=== PATIENT | female | born 1975 | race African-American/Black ===

== ENCOUNTER 2021-02-02 19:42 | Inpatient (IN) | payer SELFPAY ==
[~2021-02-02] VITALS: Ht 160 cm; Wt 65.8 kg
[2021-02-02] MEDS ORDERED: SODIUM CHLORIDE 0.9% 1,000 ML IV ONE (20:30)
[2021-02-02] MEDS ORDERED: ONDANSETRON HCL 4MG/2ML INJ IV ONE (21:15)
[2021-02-02 21:17] LABS: BASOPHILS % 0.2 % (0.0-2.0); EOSINOPHILS % 0.2 % (0.0-5.0); HEMATOCRIT. 38.3 % (36.0-48.0); HEMOGLOBIN. 12.7 g/dL (12.0-16.0); LYMPHOCYTES % 9.9 % (20.0-50.0); MEAN CORPUSCULAR HEMOGLOBIN 28.4 pg (28.0-32.0); MEAN CORPUSCULAR VOLUME 85.4 fL (81.0-99.0); MEAN PLATELET VOLUME 7.9 fl (7.4-10.4); MONOCYTES % 4.5 % (2.0-8.0); NEUTROPHILS % 85.2 % (40.0-76.0); PLATELET 288 x1000/uL (130-400); RED BLOOD CELL COUNT 4.49 mill/uL (4.2-5.4); RED CELL DISTRIBUTION WIDTH 15.1 % (11.6-14.6)
[2021-02-02 21:22] LABS: CHLORIDE 110 mEq/L (98-107)
[2021-02-02 21:26] LABS: ETHANOL BLOOD < 10 mg/dL
[2021-02-02 21:27] LABS: PROTHROMBIN TIME 10.4 sec (9.6-11.0)
[2021-02-02 21:34] LABS: HCG SCREEN NEGATIVE
[2021-02-02] MEDS ORDERED: KCL 20MEQ/100ML PREMIX 100 ML IV ONE (22:00)
[2021-02-02] MEDS ORDERED: SODIUM CHLORIDE 0.9% 1000ML BAG (SEPSIS BOLUS) IV ONE (22:15)
[2021-02-02] MEDS ORDERED: CEFTRIAXONE 1 G PREMIX 50 ML IV ONE (22:15)
[2021-02-02 22:58] LABS: CLARITY URINE CLOUDY (CLEAR); COLOR URINE YELLOW (YELLOW); KETONES URINE NEGATIVE (NEGATIVE); LEUKOCYTE ESTERASE URINE NEGATIVE (NEGATIVE); NITRITE URINE NEGATIVE (NEGATIVE); OCCULT BLOOD URINE TRACE (NEGATIVE); PROTEIN URINE 1+ (NEGATIVE); SPECIFIC GRAVITY URINE 1.009 (1.005-1.030); UROBILINOGEN URINE 0.2 E.U./dL (0.2-1.0)
[2021-02-02] MEDS ORDERED: NICARDIPINE 100 MG in SODIUM CHLORIDE 0.9% 60 ML IV PRN (23:00)
[2021-02-02] MEDS ORDERED: NITROPRUSSIDE 100 MG in DEXT 5% WATER 250 ML IV PRN (23:00)
[2021-02-02 23:14] LABS: *AMPHETAMINES SCREEN URINE NEGATIVE (NEGATIVE); *BARBITURATES SCREEN URINE NEGATIVE (NEGATIVE)
[2021-02-02 23:15] LABS: *BENZODIAZEPINES SCREEN URINE NEGATIVE (NEGATIVE); CANNABINOID URINE SCREEN NEGATIVE (NEGATIVE); METHADONE URINE SCREEN NEGATIVE (NEGATIVE); OPIATES URINE SCREEN NEGATIVE (NEGATIVE); PHENCYCLIDINE URINE SCREEN NEGATIVE (NEGATIVE)
[2021-02-02] MEDS ORDERED: ACETAMINOPHEN 325MG TABLET PO PRN ×2 (23:15)
[2021-02-02] MEDS ORDERED: ONDANSETRON HCL 4MG/2ML INJ IV PRN (23:15)
[2021-02-02 23:16] LABS: *COCAINE SCREEN URINE PRESUMTIVE POSITIVE (NEGATIVE)
[2021-02-03] MEDS ORDERED: LEVETIRACETAM 500MG PREMIX 100 ML IV NR (00:30)
[2021-02-03] MEDS: SODIUM CHLORIDE 0.45% 1,000 ML IV SCH ×3 (00:35→20:35)
[2021-02-03 09:34] LABS: BASOPHILS % 0.4 % (0.0-2.0); EOSINOPHILS % 0.1 % (0.0-5.0); HEMATOCRIT. 36.6 % (36.0-48.0); HEMOGLOBIN. 11.5 g/dL (12.0-16.0); LYMPHOCYTES % 13.6 % (20.0-50.0); MEAN CORPUSCULAR HEMOGLOBIN 27.3 pg (28.0-32.0); MEAN CORPUSCULAR VOLUME 86.7 fL (81.0-99.0); MEAN PLATELET VOLUME 8.5 fl (7.4-10.4); MONOCYTES % 6.2 % (2.0-8.0); NEUTROPHILS % 79.7 % (40.0-76.0); PLATELET 227 x1000/uL (130-400); RED BLOOD CELL COUNT 4.23 mill/uL (4.2-5.4); RED CELL DISTRIBUTION WIDTH 15.1 % (11.6-14.6)
[2021-02-03 09:40] LABS: CHLORIDE 114 mEq/L (98-107)
[2021-02-03 09:48] LABS: PHOSPHORUS 2.6 mg/dL (2.5-4.9)
[2021-02-03 10:13] VITALS: BP 178/86
[2021-02-03 10:30] VITALS: BP 178/86
[2021-02-03 16:00] VITALS: BP 157/86
[2021-02-03] MEDS ORDERED: GADOTERATE MEGLUMINE 5 MMOL/10 ML VIAL IV ONE (16:26)
[2021-02-03] MEDS ORDERED: HYDRALAZINE 20MG/ML VIAL IV PRN (20:30)
[2021-02-03] MEDS: CEFTRIAXONE 1,000 MG in DEXTROSE 5% WATER 50 ML IV SCH (20:34)
[2021-02-03 20:36] VITALS: BP 150/87
[2021-02-03] MEDS ORDERED: CEFTRIAXONE 1 G PREMIX 50 ML IV SCH (22:00)
[2021-02-04] VITALS (7 sets, daily range): BP systolic 154–182; BP diastolic 84–103
[2021-02-04] MEDS: SODIUM CHLORIDE 0.45% 1,000 ML IV SCH ×2 (01:47→17:16)
[2021-02-04 06:10] LABS: BASOPHILS % 0.8 % (0.0-2.0); EOSINOPHILS % 1.8 % (0.0-5.0); HEMATOCRIT. 35.1 % (36.0-48.0); HEMOGLOBIN. 11.2 g/dL (12.0-16.0); LYMPHOCYTES % 34.1 % (20.0-50.0); MEAN CORPUSCULAR HEMOGLOBIN 27.7 pg (28.0-32.0); MEAN PLATELET VOLUME 9.6 fl (7.4-10.4); MONOCYTES % 5.2 % (2.0-8.0); NEUTROPHILS % 58.1 % (40.0-76.0); PLATELET 195 x1000/uL (130-400); RED BLOOD CELL COUNT 4.04 mill/uL (4.2-5.4); RED CELL DISTRIBUTION WIDTH 15.2 % (11.6-14.6)
[2021-02-04 06:44] LABS: CHLORIDE 110 mEq/L (98-107)
[2021-02-04 12:32] LABS: TOTAL IRON BINDING CAPACITY 275 ug/dL (250-450)
[2021-02-04] MEDS: AMLODIPINE 5MG TABLET PO SCH (17:18)
[2021-02-04 19:00] LABS: FOLIC ACID (FOLATE) SERUM 13.4 ng/mL (>5.38)
[2021-02-04] MEDS: CEFTRIAXONE 1,000 MG in DEXTROSE 5% WATER 50 ML IV SCH (21:49)
[2021-02-04] MEDS ORDERED: SULF-288 PO (21:57)
[2021-02-05 00:35] VITALS: BP 146/88
[2021-02-05] MEDS: SODIUM CHLORIDE 0.45% 1,000 ML IV SCH ×2 (03:38→11:30)
[2021-02-05 04:00] VITALS: BP 155/87
[2021-02-05 07:53] VITALS: BP 156/93
[2021-02-05] MEDS: AMLODIPINE 5MG TABLET PO SCH (08:46)
[2021-02-05] MEDS ORDERED: AMLODIPINE 5MG TABLET PO NR (10:15)
[2021-02-05] MEDS ORDERED: TOPUD PO (10:20)
[2021-02-05] MEDS ORDERED: AMLO10TA80 PO (10:20)
[2021-02-05 10:59] VITALS: BP 128/90
[2021-02-05 11:00] VITALS: BP 133/91
[2021-02-06] MEDS ORDERED: AMLODIPINE 10MG TABLET PO SCH (09:00)
== END 2021-02-05 13:35 | disposition home or self-care (01) | DRG 720 ==
LOC: ER 19:42 → SUPCPDRO 22:55 → MICUSO 02-03 06:12 → EDBD 02-03 06:12 → 6WST 02-03 08:42
PROVIDERS: ADMIT Internal Medicine; ATTEND Internal Medicine
DX: A41.9 Sepsis, unspecified organism (principal); G92 Toxic encephalopathy; T40.5X1A Poisoning by cocaine, accidental (unintentional), initial encounter; S06.320A Contusion and laceration of left cerebrum without loss of consciousness, initial encounter; D64.9 Anemia, unspecified; E87.6 Hypokalemia; N39.0 Urinary tract infection, site not specified; X58.XXXA Exposure to other specified factors, initial encounter; Z20.822 Contact with and (suspected) exposure to COVID-19; I10 Essential (primary) hypertension; F14.129 Cocaine abuse with intoxication, unspecified; R73.9 Hyperglycemia, unspecified; Y92.89 Other specified places as the place of occurrence of the external cause; Y93.89 Activity, other specified; Y99.8 Other external cause status
CPT/HCPCS: 36415; 70553; 71045; 80053; 80305; 80320; 81003; 82607; 82728; 82746; 83540; 83550; 83605; 83735; 84100; 84145; 84703; 85025; 85044; 87426; 93005; 99291; A9577; J0360; J0696; J1953; J2405; J3480; J3490; J7030; J7060; G0480